=== PATIENT | female | born 1990 | race African-American/Black ===

== ENCOUNTER 2018-11-23 08:52 | Emergency (ER) | payer OTHER ==
[2018-11-23 09:02] VITALS: BP 115/79; PULSE 89; TEMP 97.8; BMI 21.4
[2018-11-23] MEDS ORDERED: IBUPROFEN 400 MG TABLET (FP) PO ONE (09:22)
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
== END 2018-11-23 10:02 | disposition home or self-care (01) ==
LOC: JERFT 08:52
DX: S93.401A Sprain of unspecified ligament of right ankle, initial encounter (principal); W17.89XA Other fall from one level to another, initial encounter; Y93.89 Activity, other specified; Y92.414 Local residential or business street as the place of occurrence of the external cause; Y99.8 Other external cause status
CPT/HCPCS: 73610-TC-RT-FY; 73630-TC-RT-FY; 99281-25

== ENCOUNTER 2019-05-30 19:07 | Emergency (ER) | payer OTHER ==
[2019-05-30 19:23] VITALS: BP 109/73; PULSE 82; TEMP 98.3; BMI 22.8
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
[2019-05-30] MEDS ORDERED: IBUPROFEN 600 MG TABLET (FP) PO ONE ×2 (20:06→20:18)
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
== END 2019-05-30 20:49 | disposition home or self-care (01) ==
LOC: JERFT 19:07
PROC: 2W3QX1Z Immobilization of Right Lower Leg using Splint (ICD-10-PCS; principal; 2019-05-30)
DX: S99.811A Other specified injuries of right ankle, initial encounter (principal); W01.0XXA Fall on same level from slipping, tripping and stumbling without subsequent striking against object, initial encounter; Y93.89 Activity, other specified; Y92.480 Sidewalk as the place of occurrence of the external cause; Y99.8 Other external cause status
CPT/HCPCS: 73610-TC-RT-FY; 99282-25

== ENCOUNTER 2021-04-17 12:52 | Emergency (ER) | payer OTHER ==
[2021-04-17 13:03] VITALS: BP 117/69; PULSE 90; TEMP 98; BMI 26.5
[2021-04-17] MEDS ORDERED: SILVER SULFADIAZINE 1% TOP CREAM 50 GM JAR TP ONE ×2 (13:17→13:25)
== END 2021-04-17 13:48 | disposition home or self-care (01) ==
LOC: JER 12:52 → JERFT 12:52
DX: T23.171A Burn of first degree of right wrist, initial encounter (principal); X10.2XXA Contact with fats and cooking oils, initial encounter
CPT/HCPCS: 99283-25

== ENCOUNTER 2024-02-22 16:47 | Emergency (ER) | payer OTHER ==
[2024-02-22 17:15] VITALS: BP 118/84; PULSE 99; RESP 19; TEMP 98.7; BMI 24.1
[2024-02-22 18:09] LABS: BASO % 0.3 % (0-2.0); EOS % 0.4 % (0-4.5); HEMOGLOBIN 10.5 GM/dL (10.7-15.3); LYMPH % 19.3 % (8-40); MCH 23.6 pg (25.7-33.7); MEAN CELL VOLUME 73.9 fl (80-96); MEAN PLT VOLUME 7.2 fl (7.5-11.1); PLATELET COUNT 488 10^3/uL (134-434); RBC 4.46 M/mm3 (3.60-5.2); RDW 17.7 % (11.6-15.6); WHITE BLOOD COUNT 9.6 K/mm3 (4.0-10.0)
[2024-02-22 18:29] LABS: POTASSIUM 3.6 mmol/L (3.5-5.1)
[2024-02-22 18:33] LABS: CALCIUM 9.3 mg/dL (8.5-10.1)
[2024-02-22 18:34] LABS: BLOOD UREA NITROGEN 7.3 mg/dL (7-18)
[2024-02-22 18:37] LABS: CREATININE 0.5 mg/dL (0.55-1.3)
[2024-02-22 19:25] LABS: HIV INTERPRETATION NEGATIVE (NEGATIVE)
== END 2024-02-22 19:02 | disposition home or self-care (01) ==
LOC: JER 16:47
DX: R22.1 Localized swelling, mass and lump, neck (principal); E04.9 Nontoxic goiter, unspecified; M25.561 Pain in right knee; G89.29 Other chronic pain
CPT/HCPCS: 36415; 80048; 83690; 84439; 84443; 85025; 86803; 87389; 99283-25